=== PATIENT | male | born 2000 | race Hispanic/Latino ===

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

== ENCOUNTER 2022-04-11 16:36 | Emergency (ER) | payer OTHER | END 2022-04-11 17:47 | disposition home or self-care (01) | LOC: ERS 16:36 | DX: H65.91 Unspecified nonsuppurative otitis media, right ear (principal) | CPT/HCPCS: 99282 ==

== ENCOUNTER 2024-01-14 17:23 | Emergency (ER) | payer OTHER, SELFPAY ==
[2024-01-14] MEDS ORDERED: Ondansetron ODT 4 MG TAB ONE (18:36)
[2024-01-14] MEDS ORDERED: Dicyclomine 20 MG TAB ONE (18:36)
== END 2024-01-14 18:44 | disposition home or self-care (01) ==
LOC: ERS 17:23
DX: A09 Infectious gastroenteritis and colitis, unspecified (principal)
CPT/HCPCS: 99284; Q0162

== ENCOUNTER 2024-11-25 17:41 | Emergency (ER) | payer SELFPAY ==
[2024-11-25 19:12] LABS: #Basophils 0.05 10x3/uL (0.0-0.2); %Basophils 0.5 % (0.0-1.0); %Eosinophils 2.6 % (0.0-10.0); %Lymphocytes 36.2 % (21.0-51.0); %Monocytes 4.1 % (0.0-10.0); %Neutrophils 56.3 % (42.0-75.0); Hematocrit 51.9 % (42.0-52.0); Mean Corpuscular HGB CONC 34.7 g/dL (32.0-36.0); Mean Corpuscular Hemoglobin 30.3 pg (27.0-31.0); Mean Corpuscular Volume 87.2 fL (78.0-98.0); Mean Platelet Volume 9.4 fL (7.4-10.4); Platelet Count 319 10x3/uL (130-400); RBC Distribution Width 12.4 % (11.5-14.5); Red Blood Cell (RBC) Count 5.95 mill/uL (4.70-6.10)
[2024-11-25 19:18] LABS: ALT (SGPT) 36 U/L (8-55); AST (SGOT) 32 U/L (5-34); Albumin 3.5 g/dL (3.5-5.0); Alkaline Phosphatase 52 U/L (40-110); Anion Gap 13 mmol/L (10-20); BUN (Urea Nitrogen) 11 mg/dL (8.9-20.6); Bilirubin, Total 0.6 mg/dL (0.2-1.2); Calc. Creatinine Clearance 0 mL/min (70-130); Calcium 8.3 mg/dL (7.8-10.44); Carbon Dioxide 24 mmol/L (22-29); Chloride 103 mmol/L (98-107); Estimated GFR 113; Globulin 2.7 g/dL (2.4-3.5); Glucose 226 mg/dL (70-105); Potassium 3.9 mmol/L (3.5-5.1); Protein, Total 6.2 g/dL (6.0-8.3); Sodium 136 mmol/L (136-145)
== END 2024-11-25 19:49 | disposition home or self-care (01) ==
LOC: ERS 17:41
DX: R55 Syncope and collapse (principal)
CPT/HCPCS: 80053; 85025; 93005; 99284